=== PATIENT | male | born 1940 | race Caucasian/White ===

== ENCOUNTER 2016-04-19 12:20 | Inpatient (IN) | payer OTHER, MEDICARE ==
[~2016-04-19] VITALS: Ht 175.3 cm; Wt 102.0 kg
[~2016-04-19 12:20] MED LIST: ASPIRIN EC325 MG PO; ASPIRIN325 MG PO; ATARAX,VISTARIL25 M1 PO; Bactrim,Septra DS 80 PO; CALCIUM ACETAT667 MG PO; Coumadin Daily Dose PO; DOCUSATE SODIU100 MG PO; ENDOCET 5-3251 EACH PO; FENOFIBRATE54 M1 PO; Feosol PO; Flomax PO; LASIX40 MG PO; LOPRESSOR50 MG PO; NABI650T PO; OMEPRAZOLE40 M1 PO; PRAVACHOL40 MG PO; PriLOSEC PO; TOPROL XL25 MG PO
[2016-04-19 13:46] LABS: MCH 31.7 PG (29.0-34.0); MCHC 34.2 G/DL (30.0-36.0); MCV 92.4 FL (86-99); MEAN PLAT.VOLUME 9.4 uM^3 (9.0-12.4); PLATELET COUNT 130 K/uL (156-360); RBC DIS.WIDTH-CV 12.9 % (11.8-14.6); RBC DIS.WIDTH-SD 42.2 % (39-53); RED BLOOD COUNT 3.57 M/uL (4.00-5.50); WHITE BLOOD COUNT 6.8 K/uL (4.1-10.2)
[2016-04-19 13:57] LABS: CHLORIDE 103 mEq/L (99-109); POTASSIUM 3.6 mEq/L (3.7-5.4); SODIUM 139 mEq/L (136-147)
[2016-04-19 13:59] LABS: GLUCOSE 121 mg/dL (70-99)
[2016-04-19 14:00] LABS: ANION GAP 10 MEQ/L (2-14)
[2016-04-19 14:03] LABS: GFR ESTIMATE (CALCULATED) > 59 mL/min/; UREA NITROGEN (BUN) 12 mg/dL (9-23)
[2016-04-19 14:14] LABS: TROP-I INTERPRETATION NEGATIVE; TROPONIN-I 0.03 ng/mL (0.0-0.30)
[2016-04-19] MEDS ORDERED: ASPIR 8181 M1 PO (15:07)
[2016-04-19] MEDS ORDERED: METOPROLOL TART25 MG PO (15:07)
[2016-04-19] MEDS ORDERED: DEXAMETHASONE4 MG PO (15:08)
[2016-04-19] MEDS ORDERED: LASIX40 MG PO (15:08)
[2016-04-19] MEDS ORDERED: ACYCLOVIR400 MG PO (15:09)
[2016-04-19] MEDS ORDERED: BACTRIM,SEPT1 TABLET PO (15:19)
[2016-04-19 18:44] LABS: TROP-I INTERPRETATION INDETERMINATE; TROPONIN-I 0.39 ng/mL (0.0-0.30)
[2016-04-19 20:13] VITALS: BP 132/92
[2016-04-20 00:42] LABS: TROP-I INTERPRETATION POSITIVE
[2016-04-20 11:30] LABS: TROP-I INTERPRETATION POSITIVE
[2016-04-20 12:16] VITALS: BP 123/73
[2016-04-20 15:20] LABS: TROP-I INTERPRETATION POSITIVE
[2016-04-20 15:21] LABS: TROPONIN-I 5.35 ng/mL (0.0-0.30)
[2016-04-20 17:07] VITALS: BP 142/97
[2016-04-20 19:28] LABS: TROP-I INTERPRETATION POSITIVE
[2016-04-20 19:29] LABS: TROPONIN-I 5.52 ng/mL (0.0-0.30)
[2016-04-20 19:30] VITALS: BP 125/84
[2016-04-20 23:15] VITALS: BP 113/77
[2016-04-21 03:10] VITALS: BP 110/70
[2016-04-21 06:04] LABS: EOSINOPHIL (%) 0.9 % (0-5); HEMATOCRIT 32.4 % (38.0-50.0); IMMATURE GRANULOCYTE (%) 3.9 % (0.0-0.7); IMMATURE GRANULOCYTE COUNT 0.2 K/uL; LYMPHOCYTE COUNT 0.6 K/uL (1.0-2.8); MCH 31.5 PG (29.0-34.0); MCV 95.3 FL (86-99); MEAN PLAT.VOLUME 9.9 uM^3 (9.0-12.4); MONOCYTE (%) 16.3 % (3-12); MONOCYTE COUNT 0.8 K/uL (0-0.8); NEUTROPHIL COUNT 3.1 K/uL (1.8-6.4); PLATELET COUNT 135 K/uL (156-360); RBC DIS.WIDTH-CV 13.7 % (11.8-14.6); RBC DIS.WIDTH-SD 47.6 % (39-53); WHITE BLOOD COUNT 4.7 K/uL (4.1-10.2)
[2016-04-21 06:10] LABS: ANION GAP 7 MEQ/L (2-14); CHLORIDE 105 MEQ/L (99-109); GFR ESTIMATE (CALCULATED) > 59 mL/min/; POTASSIUM 4.2 MEQ/L (3.7-5.4); SAMPLE HEMOLYSIS CHECK 0; SAMPLE ICTERIC CHECK 0; SAMPLE LIPEMIA CHECK 0; SODIUM 141 MEQ/L (136-147); UREA NITROGEN (BUN) 12 mg/dL (9-23)
[2016-04-21 06:13] LABS: GLUCOSE 83 mg/dL (70-99)
[2016-04-21 06:58] LABS: HEMATOLOGY COMMENT 1 SMEAR COMPATIBLE; USER ID CCL
[2016-04-21 07:47] VITALS: BP 138/84
[2016-04-21 12:00] VITALS: BP 133/79
[2016-04-21 14:00] LABS: TROP-I INTERPRETATION POSITIVE
[2016-04-21 14:26] LABS: TROPONIN-I 4.02 ng/mL (0.0-0.30)
[2016-04-21 17:58] VITALS: BP 141/95
[2016-04-21 20:35] VITALS: BP 128/88
[2016-04-22] VITALS (7 sets, daily range): BP systolic 126–145; BP diastolic 71–82
[2016-04-22 06:36] LABS: HEMATOCRIT 33.4 % (38.0-50.0); MCH 32.2 PG (29.0-34.0); MCHC 33.8 G/DL (30.0-36.0); MCV 95.2 FL (86-99); MEAN PLAT.VOLUME 9.7 uM^3 (9.0-12.4); PLATELET COUNT 132 K/uL (156-360); RBC DIS.WIDTH-CV 13.6 % (11.8-14.6); RBC DIS.WIDTH-SD 47.2 % (39-53); RED BLOOD COUNT 3.51 M/uL (4.00-5.50); WHITE BLOOD COUNT 5.2 K/uL (4.1-10.2)
[2016-04-22 06:49] LABS: INTER. NORMALIZED RATIO 1.1; PROTHROMBIN TIME 10.7 (9.2-11.2); PTT 32.3 (25-32)
[2016-04-22 06:58] LABS: ANION GAP 8 MEQ/L (2-14); CHLORIDE 106 MEQ/L (99-109); GFR ESTIMATE (CALCULATED) > 59 mL/min/; GLUCOSE 88 mg/dL (70-99); SAMPLE HEMOLYSIS CHECK 0; SAMPLE ICTERIC CHECK 0; SAMPLE LIPEMIA CHECK 0; SODIUM 141 MEQ/L (136-147); UREA NITROGEN (BUN) 12 mg/dL (9-23)
[2016-04-23 03:50] VITALS: BP 127/72
[2016-04-23] MEDS ORDERED: CLOPIDOGREL75 MG PO (07:34)
[2016-04-23 08:37] VITALS: BP 117/81
== END 2016-04-23 09:38 | disposition home or self-care (01) | DRG 281 ==
LOC: EME 12:20 → EDOF 15:31 → 5WEST 19:31 → 4EAST 04-20 12:50 → 5WEST 04-20 12:50 → 4EAST 04-20 16:02
PROVIDERS: Emergency Medicine; Hospitalist; Internal Medicine; Internal Medicine Cardiovascular Disease; Physician Assistant
PROC: 4A023N7 Measurement of Cardiac Sampling and Pressure, Left Heart, Percutaneous Approach (ICD-10-PCS; principal; 2016-04-22)
PROC: B41F1ZZ Fluoroscopy of Right Lower Extremity Arteries using Low Osmolar Contrast (ICD-10-PCS; principal; 2016-04-22)
PROC: B2111ZZ Fluoroscopy of Multiple Coronary Arteries using Low Osmolar Contrast (ICD-10-PCS; principal; 2016-04-22)
DX: I21.4 Non-ST elevation (NSTEMI) myocardial infarction (principal); I25.10 Atherosclerotic heart disease of native coronary artery without angina pectoris; I13.0 Hypertensive heart and chronic kidney disease with heart failure and stage 1 through stage 4 chronic kidney disease, or unspecified chronic kidney disease; I50.32 Chronic diastolic (congestive) heart failure; C90.00 Multiple myeloma not having achieved remission; I71.2 Thoracic aortic aneurysm, without rupture; N18.9 Chronic kidney disease, unspecified; I35.0 Nonrheumatic aortic (valve) stenosis; I27.2 Other secondary pulmonary hypertension; E78.5 Hyperlipidemia, unspecified; K21.9 Gastro-esophageal reflux disease without esophagitis; D47.2 Monoclonal gammopathy; E66.9 Obesity, unspecified; Z96.651 Presence of right artificial knee joint; Z87.891 Personal history of nicotine dependence; Z79.82 Long term (current) use of aspirin; Z68.33 Body mass index [BMI] 33.0-33.9, adult
CPT/HCPCS: 71010; 71275; 80048; 84484; 85025; 85027; 85610; 85730; 93005; 93306; 99281; 99285; C1750; C1760; C1769; C1887; C1894; G0378; J1644; J1650; J2250; J3010; J7040; J7050

== ENCOUNTER → 2016-05-21 | Outpatient (CLI) | payer OTHER, MEDICARE ==
[~2016-05-21] MED LIST changes: +ACYCLOVIR400 MG PO; +ASPIR 8181 M1 PO; +BACTRIM,SEPT1 TABLET PO; +CALCIUM ACETAT667 M2 PO; +CLOPIDOGREL75 MG PO; +COMPAZINE10 MG PO; +DEXAMETHASONE4 MG PO; +ERGOCALCIF50000 UNIT PO; +KLOR-CON SPRIN10 MEQ PO; +METOPROLOL TART25 MG PO
[2016-05-21 10:14] LABS: EOSINOPHIL (%) 0 % (0-5); IMMATURE GRANULOCYTE (%) 0.5 % (0.0-0.7); IMMATURE GRANULOCYTE COUNT 0.1 K/uL; LYMPHOCYTE COUNT 0.4 K/uL (1.0-2.8); MCH 32.2 PG (29.0-34.0); MCHC 34.6 G/DL (30.0-36.0); MCV 93.1 FL (86-99); MEAN PLAT.VOLUME 8.7 uM^3 (9.0-12.4); MONOCYTE (%) 2.5 % (3-12); MONOCYTE COUNT 0.3 K/uL (0-0.8); NEUTROPHIL (%) 93.7 % (45-76); NEUTROPHIL COUNT 10.2 K/uL (1.8-6.4); PLATELET COUNT 191 K/uL (156-360); RBC DIS.WIDTH-CV 13.7 % (11.8-14.6); RBC DIS.WIDTH-SD 46.6 % (39-53); RED BLOOD COUNT 3.76 M/uL (4.00-5.50)
[2016-05-21 10:18] LABS: WHITE BLOOD COUNT 10.9 K/uL (4.1-10.2)
[2016-05-21 10:21] LABS: PROTHROMBIN TIME 10.4 (9.2-11.2); PTT 23.6 (25-32)
[2016-05-21 11:00] LABS: ABS NEUTROPHIL COUNT 10.31; MACROCYTES OCC; PLAT.SUFFICIENCY ADEQUATE
[2016-05-23 15:11] LABS: Flow Number of Markers 24 (()); Flow Spec Viability 94 % (()); Flow Specimen Type BONE MARROW (())
== END | disposition home or self-care (01) ==
LOC: OPR 09:09 → EDSTATUS 10:00 → OPR 10:00
PROVIDERS: Anesthesiology; Internal Medicine Hematology & Oncology
PROC: 07DS3ZX Extraction of Vertebral Bone Marrow, Percutaneous Approach, Diagnostic (ICD-10-PCS; principal; 2016-05-21)
DX: C90.00 Multiple myeloma not having achieved remission (principal); I71.2 Thoracic aortic aneurysm, without rupture; I35.0 Nonrheumatic aortic (valve) stenosis; K86.2 Cyst of pancreas; N40.0 Benign prostatic hyperplasia without lower urinary tract symptoms; K21.9 Gastro-esophageal reflux disease without esophagitis
CPT/HCPCS: 77012; 85025; 85610; 85730; 85999; 88184 90; 88185 90; 88189 90; 88237 90; 88264 90; 88271 90; 88271 91; 88275 90; 88275 91; 88280 90; 88291 90; J3010

== ENCOUNTER → 2016-06-03 | Outpatient (CLI) | payer OTHER, MEDICARE | END | disposition home or self-care (01) | LOC: NUC 07:30 | DX: M25.551 Pain in right hip (principal); M25.552 Pain in left hip; C90.00 Multiple myeloma not having achieved remission | CPT/HCPCS: 78306; A9503 ==

== ENCOUNTER 2016-11-05 07:39 | Inpatient (IN) | payer OTHER, MEDICARE ==
[~2016-11-05] VITALS: Ht 172.7 cm; Wt 94.3 kg
[2016-11-05] VITALS (9 sets, daily range): BP systolic 83–143; BP diastolic 56–99
[~2016-11-05 07:39] MED LIST changes: +ATORVASTATIN CA40 MG PO; +KLOR-CON M2020 MEQ PO; -KLOR-CON SPRIN10 MEQ PO; +METOPROLOL SUCC25 MG PO; -METOPROLOL TART25 MG PO
[2016-11-05 08:21] LABS: HEMATOCRIT 38.3 % (38.0-50.0); MCH 30.6 PG (29.0-34.0); MCHC 33.7 G/DL (30.0-36.0); MEAN PLAT.VOLUME 9.7 uM^3 (9.0-12.4); RBC DIS.WIDTH-CV 12.9 % (11.8-14.6); RBC DIS.WIDTH-SD 42.5 % (39-53); RED BLOOD COUNT 4.21 M/uL (4.00-5.50); WHITE BLOOD COUNT 8.8 K/uL (4.1-10.2)
[2016-11-05 08:23] LABS: PLATELET COUNT 148 K/uL (156-360)
[2016-11-05 08:53] LABS: ANION GAP 9 MEQ/L (2-14); CHLORIDE 108 MEQ/L (99-109); SAMPLE HEMOLYSIS CHECK 0; SAMPLE ICTERIC CHECK 0; SAMPLE LIPEMIA CHECK 0; SODIUM 142 MEQ/L (136-147)
[2016-11-05 08:59] LABS: GFR ESTIMATE (CALCULATED) > 59 mL/min/; GLUCOSE 106 mg/dL (70-99); UREA NITROGEN (BUN) 16 mg/dL (9-23)
[2016-11-05 09:15] LABS: TROP-I INTERPRETATION NEGATIVE; TROPONIN-I 0.01 ng/mL (0.0-0.30)
[2016-11-05 12:00] LABS: TROP-I INTERPRETATION NEGATIVE; TROPONIN-I < 0.01 ng/mL (0.0-0.30)
[2016-11-05] MEDS ORDERED: PLAVIX75 MG PO (13:54)
[2016-11-05] MEDS ORDERED: VITAMIN D2000 UNIT PO (13:57)
[2016-11-05] MEDS ORDERED: VELCADE3.5 MG IV (14:00)
[2016-11-05 16:34] LABS: INFLUENZA A VIRAL ANTIGEN NEGATIVE; INFLUENZA B VIRAL ANTIGEN NEGATIVE
[2016-11-05 18:22] LABS: TROP-I INTERPRETATION NEGATIVE; TROPONIN-I 0.02 ng/mL (0.0-0.30)
[2016-11-06] VITALS (7 sets, daily range): BP systolic 104–126; BP diastolic 58–78
[2016-11-06 00:59] LABS: TROP-I INTERPRETATION NEGATIVE; TROPONIN-I < 0.01 ng/mL (0.0-0.30)
[2016-11-06 06:27] LABS: MCH 32.3 PG (29.0-34.0); MCHC 34.6 G/DL (30.0-36.0); MCV 93.3 FL (86-99); MEAN PLAT.VOLUME 9.6 uM^3 (9.0-12.4); PLATELET COUNT 138 K/uL (156-360); RBC DIS.WIDTH-CV 13.2 % (11.8-14.6); RBC DIS.WIDTH-SD 45.3 % (39-53); RED BLOOD COUNT 3.75 M/uL (4.00-5.50); WHITE BLOOD COUNT 6.5 K/uL (4.1-10.2)
[2016-11-06 06:59] LABS: ANION GAP 8 MEQ/L (2-14); CHLORIDE 105 MEQ/L (99-109); GFR ESTIMATE (CALCULATED) > 59 mL/min/; GLUCOSE 92 mg/dL (70-99); POTASSIUM 3.7 MEQ/L (3.7-5.4); SAMPLE HEMOLYSIS CHECK 0; SAMPLE ICTERIC CHECK 0; SAMPLE LIPEMIA CHECK 0; SODIUM 141 MEQ/L (136-147); UREA NITROGEN (BUN) 15 mg/dL (9-23)
[2016-11-06 09:29] LABS: INTERNAL CONTROL VALID? YES
[2016-11-07 05:50] VITALS: BP 99/64
[2016-11-07 07:40] VITALS: BP 122/78
[2016-11-07] MEDS ORDERED: PROAIR HFA8.5 GM IH (09:58)
[2016-11-07] MEDS ORDERED: SPIRIVA1 INHALATI IH (09:58)
[2016-11-07] MEDS ORDERED: SORE THROAT LO1 EAC3 MM (09:58)
[2016-11-07] MEDS ORDERED: ADVAIR HFA120 INHALA IH (09:58)
[2016-11-07] MEDS ORDERED: AZITHROMYCIN250 MG1 PO (09:59)
== END 2016-11-07 11:45 | disposition home or self-care (01) | DRG 190 ==
LOC: EME 07:39 → EDOF 12:53 → 5EAST 12:53 → ENRESERV 12:58 → 5EAST 14:25
PROVIDERS: Emergency Medicine; Nurse Practitioner Adult Health
DX: J44.1 Chronic obstructive pulmonary disease with (acute) exacerbation (principal); J96.01 Acute respiratory failure with hypoxia; I50.32 Chronic diastolic (congestive) heart failure; I13.0 Hypertensive heart and chronic kidney disease with heart failure and stage 1 through stage 4 chronic kidney disease, or unspecified chronic kidney disease; C90.00 Multiple myeloma not having achieved remission; J98.11 Atelectasis; J20.9 Acute bronchitis, unspecified; Z96.651 Presence of right artificial knee joint; I25.10 Atherosclerotic heart disease of native coronary artery without angina pectoris; I25.2 Old myocardial infarction; K21.9 Gastro-esophageal reflux disease without esophagitis; N18.9 Chronic kidney disease, unspecified; F17.290 Nicotine dependence, other tobacco product, uncomplicated; E78.5 Hyperlipidemia, unspecified; I71.2 Thoracic aortic aneurysm, without rupture; Z88.1 Allergy status to other antibiotic agents; Z79.82 Long term (current) use of aspirin
CPT/HCPCS: 71020; 71275; 80048; 83605; 83880; 84484; 85027; 87040; 87070; 87205; 87449; 87502; 93005; 94640; 94640 76; 94799; 99202; 99281; 99284; J0456; J1644; J7030

== ENCOUNTER 2017-07-30 11:05 | Inpatient (IN) | payer OTHER, MEDICARE ==
[~2017-07-30] VITALS: Ht 167.6 cm; Wt 77.2 kg
[~2017-07-30 11:05] MED LIST changes: +ADVAIR HFA120 INHALA IH; +AZITHROMYCIN250 MG1 PO; +PLAVIX75 MG PO; +PROAIR HFA8.5 GM IH; +SORE THROAT LO1 EAC3 MM; +SPIRIVA1 INHALATI IH; +VELCADE3.5 MG IV; +VITAMIN D2000 UNIT PO
[2017-07-30 13:11] LABS: HEMATOCRIT 31.1 % (38.0-50.0); HEMOGLOBIN 10.7 G/DL (12.5-16.6); MCH 31.9 PG (29.0-34.0); MCHC 34.4 G/DL (30.0-36.0); MCV 92.8 FL (86-99); PLATELET COUNT 101 K/uL (156-360); RBC DIS.WIDTH-CV 15.8 % (11.8-14.6); RBC DIS.WIDTH-SD 53.8 % (39-53); RED BLOOD COUNT 3.35 M/uL (4.00-5.50); WHITE BLOOD COUNT 5.9 K/uL (4.1-10.2)
[2017-07-30 13:19] LABS: ALBUMIN 3.8 g/dL (3.2-4.8); CHLORIDE 105 mEq/L (99-109); POTASSIUM 5.6 mEq/L (3.7-5.4); SODIUM 134 mEq/L (136-147)
[2017-07-30 13:22] LABS: TOTAL PROTEIN 6.1 g/dL (6.4-8.3)
[2017-07-30 13:23] LABS: GLUCOSE 195 mg/dL (70-99)
[2017-07-30 13:24] LABS: TOTAL BILIRUBIN 0.5 mg/dL (0.0-1.0)
[2017-07-30 13:25] LABS: ALKALINE PHOSPHATASE 84 IU/L (3-129); CREATININE 3.3 mg/dL (0.6-1.3); GFR ESTIMATE (CALCULATED) 19 mL/min/ (58.99-99999)
[2017-07-30 13:26] LABS: UREA NITROGEN (BUN) 30 mg/dL (9-23)
[2017-07-30 13:27] LABS: AST (GOT) 20 IU/L (2-34)
[2017-07-30 13:28] LABS: ALT (GPT) 14 IU/L (3-49)
[2017-07-30 14:41] LABS: APPEARANCE CLEAR ((CLEAR)); BILIRUBIN NEGATIVE; BLOOD SMALL; COLOR STRAW ((YELLOW)); GLUCOSE (STRIP) NEGATIVE; KETONES NEGATIVE; LEUKOCYTES NEGATIVE; NITRITE NEGATIVE; PROTEIN (STRIP) NEGATIVE; SPECIFIC GRAVITY 1.009 (1.000-1.030); UROBILINOGEN 0.2 MG/DL (0.2-1.0)
[2017-07-30 14:55] LABS: BACTERIA RARE /HPF; EPITHELIAL CELLS RARE /HPF; HYALINE CASTS 0-5 /LPF; MUCUS TRACE /LPF; RED BLOOD CELLS NONE SEEN /HPF (0-5); WHITE BLOOD CELLS 0-5 /HPF (0-5)
[2017-07-30] MEDS ORDERED: LISINOPRIL2.5 MG PO (15:14)
[2017-07-30] MEDS ORDERED: CALCIUM600 M1 PO (15:15)
[2017-07-30] MEDS ORDERED: ACETAMINOPHEN325 M1 PO (15:16)
[2017-07-30] MEDS ORDERED: XGEVA120 MG/1.7 SC (15:16)
[2017-07-30 17:14] VITALS: BP 119/59
[2017-07-30 18:09] LABS: CHLORIDE 108 MEQ/L (99-109); CREATININE 2.9 MG/DL (0.6-1.3); GFR ESTIMATE (CALCULATED) 23 mL/min/ (58.99-99999); GLUCOSE 154 mg/dL (70-99); POTASSIUM 5.2 MEQ/L (3.7-5.4); SODIUM 137 MEQ/L (136-147); UREA NITROGEN (BUN) 30 mg/dL (9-23)
[2017-07-30 20:39] VITALS: BP 99/42
[2017-07-31 00:16] VITALS: BP 98/41
[2017-07-31 04:28] VITALS: BP 100/42
[2017-07-31 06:30] LABS: CHLORIDE 113 MEQ/L (99-109); GFR ESTIMATE (CALCULATED) 22 mL/min/ (58.99-99999); POTASSIUM 5.4 MEQ/L (3.7-5.4); SODIUM 138 MEQ/L (136-147); UREA NITROGEN (BUN) 38 mg/dL (9-23)
[2017-07-31 06:32] LABS: GLUCOSE 109 mg/dL (70-99)
[2017-07-31 08:00] VITALS: BP 98/52
[2017-07-31 11:36] VITALS: BP 96/48
[2017-07-31 16:43] LABS: CHLORIDE 112 MEQ/L (99-109); CREATININE 2.7 MG/DL (0.6-1.3); GFR ESTIMATE (CALCULATED) 24 mL/min/ (58.99-99999); GLUCOSE 119 mg/dL (70-99); SODIUM 138 MEQ/L (136-147); UREA NITROGEN (BUN) 36 mg/dL (9-23)
[2017-07-31 19:30] VITALS: BP 98/46
[2017-07-31 19:35] LABS: UR CREATININE CONCENTRATION 23.3 MG/DL
[2017-07-31 23:27] VITALS: BP 102/84
[2017-08-01 03:29] VITALS: BP 96/53
[2017-08-01 05:40] LABS: ALBUMIN 2.8 G/DL (3.2-4.8); CHLORIDE 115 MEQ/L (99-109); CREATININE 2.7 MG/DL (0.6-1.3); GFR ESTIMATE (CALCULATED) 24 mL/min/ (58.99-99999); PHOSPHORUS 3.1 mg/dL (2.5-4.9); POTASSIUM 4.8 MEQ/L (3.7-5.4); SODIUM 140 MEQ/L (136-147); UREA NITROGEN (BUN) 30 mg/dL (9-23)
[2017-08-01 05:44] LABS: GLUCOSE 87 mg/dL (70-99)
[2017-08-01 07:52] VITALS: BP 101/53
[2017-08-01 11:21] VITALS: BP 97/51
[2017-08-01 15:44] VITALS: BP 108/54
[2017-08-01 19:19] VITALS: BP 101/54
[2017-08-01 23:43] VITALS: BP 101/51; BP 11/51
[2017-08-02 04:00] VITALS: BP 111/53
[2017-08-02 06:18] LABS: ALBUMIN 2.9 G/DL (3.2-4.8); CHLORIDE 115 MEQ/L (99-109); GFR ESTIMATE (CALCULATED) 31 mL/min/ (58.99-99999); GLUCOSE 83 mg/dL (70-99); PHOSPHORUS 2.9 mg/dL (2.5-4.9); SODIUM 140 MEQ/L (136-147); UREA NITROGEN (BUN) 21 mg/dL (9-23)
[2017-08-02 06:24] LABS: CREATININE 2.2 MG/DL (0.6-1.3)
[2017-08-02 07:50] VITALS: BP 110/53
[2017-08-02 12:01] VITALS: BP 111/56
[2017-08-02 15:48] VITALS: BP 118/55
[2017-08-02 19:52] VITALS: BP 116/56
[2017-08-03 00:20] VITALS: BP 112/54
[2017-08-03 07:14] LABS: ALBUMIN 2.7 G/DL (3.2-4.8); CHLORIDE 115 MEQ/L (99-109); GFR ESTIMATE (CALCULATED) 35 mL/min/ (58.99-99999); GLUCOSE 80 mg/dL (70-99); PHOSPHORUS 2.8 mg/dL (2.5-4.9); POTASSIUM 5.1 MEQ/L (3.7-5.4); SODIUM 140 MEQ/L (136-147); UREA NITROGEN (BUN) 17 mg/dL (9-23)
[2017-08-03 08:14] VITALS: BP 120/60
[2017-08-03 16:59] VITALS: BP 103/55
[2017-08-03 23:58] VITALS: BP 95/53
[2017-08-04 06:29] LABS: ALBUMIN 2.8 G/DL (3.2-4.8); CHLORIDE 111 MEQ/L (99-109); CHLORIDE 112 MEQ/L (99-109); CREATININE 2.1 MG/DL (0.6-1.3); GFR ESTIMATE (CALCULATED) 33 mL/min/ (58.99-99999); GLUCOSE 81 mg/dL (70-99); PHOSPHORUS 3.1 mg/dL (2.5-4.9); POTASSIUM 4.7 MEQ/L (3.7-5.4); POTASSIUM 4.8 MEQ/L (3.7-5.4); SODIUM 139 MEQ/L (136-147); SODIUM 140 MEQ/L (136-147); UREA NITROGEN (BUN) 17 mg/dL (9-23)
[2017-08-04 08:06] VITALS: BP 113/57
[2017-08-04 16:36] VITALS: BP 114/59
[2017-08-05 00:23] VITALS: BP 105/55
[2017-08-05 07:05] LABS: ALBUMIN 2.9 G/DL (3.2-4.8); CHLORIDE 110 MEQ/L (99-109); CREATININE 2.4 MG/DL (0.6-1.3); GFR ESTIMATE (CALCULATED) 28 mL/min/ (58.99-99999); GLUCOSE 82 mg/dL (70-99); PHOSPHORUS 4.1 mg/dL (2.5-4.9); POTASSIUM 4.6 MEQ/L (3.7-5.4); SODIUM 142 MEQ/L (136-147); UREA NITROGEN (BUN) 19 mg/dL (9-23)
[2017-08-05 07:44] VITALS: BP 116/58
[2017-08-05] MEDS ORDERED: TAMSULOSIN HCL0.4 MG PO (08:54)
== END 2017-08-05 12:01 | disposition home or self-care (01) | DRG 291 ==
LOC: EME 11:05 → 5SOUTH 14:12 → EDOF 14:12 → ENRESERV 14:13 → 5SOUTH 17:02 → ENPENDDIS 08-05 09:57 → 5SOUTH 08-05 12:01
PROVIDERS: Emergency Medicine; Hospitalist; Internal Medicine Nephrology
DX: I13.0 Hypertensive heart and chronic kidney disease with heart failure and stage 1 through stage 4 chronic kidney disease, or unspecified chronic kidney disease (principal); I50.33 Acute on chronic diastolic (congestive) heart failure; N18.9 Chronic kidney disease, unspecified; N17.0 Acute kidney failure with tubular necrosis; E87.5 Hyperkalemia; E86.9 Volume depletion, unspecified; E83.51 Hypocalcemia; C90.00 Multiple myeloma not having achieved remission; N13.8 Other obstructive and reflux uropathy; N31.2 Flaccid neuropathic bladder, not elsewhere classified; R31.9 Hematuria, unspecified; T50.1X5A Adverse effect of loop [high-ceiling] diuretics, initial encounter; T46.4X5A Adverse effect of angiotensin-converting-enzyme inhibitors, initial encounter; E78.5 Hyperlipidemia, unspecified; I25.10 Atherosclerotic heart disease of native coronary artery without angina pectoris; I42.9 Cardiomyopathy, unspecified; N40.1 Benign prostatic hyperplasia with lower urinary tract symptoms; R33.8 Other retention of urine; K21.9 Gastro-esophageal reflux disease without esophagitis; Z96.653 Presence of artificial knee joint, bilateral; Z95.2 Presence of prosthetic heart valve; Z79.02 Long term (current) use of antithrombotics/antiplatelets; Z79.82 Long term (current) use of aspirin; Z87.891 Personal history of nicotine dependence
CPT/HCPCS: 36415; 76770; 80048 91; 80053; 80069; 81003; 82232; 82570; 82728; 82784; 83540; 83605; 83615; 83883 90; 84156; 84165; 84300; 84466; 84550; 85007; 85027; 86334; 86335; 87040; 87086; 93005; 99281; 99285; J1644; J1940; J7030; J7040

== ENCOUNTER 2017-08-20 23:03 | Observation (INO) | payer OTHER, MEDICARE ==
[~2017-08-20] VITALS: Ht 167.6 cm; Wt 81.0 kg
[~2017-08-20 23:03] MED LIST changes: +ACETAMINOPHEN325 M1 PO; +CALCIUM600 M1 PO; +LISINOPRIL2.5 MG PO; +TAMSULOSIN HCL0.4 MG PO; +XGEVA120 MG/1.7 SC
[2017-08-21] VITALS (19 sets, daily range): BP systolic 73–111; BP diastolic 42–56
[2017-08-21 00:20] LABS: HEMATOCRIT 21.7 % (38.0-50.0); HEMOGLOBIN 7.6 G/DL (12.5-16.6); MCH 32.8 PG (29.0-34.0); MCV 93.5 FL (86-99); RBC DIS.WIDTH-CV 17.9 % (11.8-14.6); RBC DIS.WIDTH-SD 61.1 % (39-53); WHITE BLOOD COUNT 6.7 K/uL (4.1-10.2)
[2017-08-21 00:32] LABS: CHLORIDE 106 mEq/L (99-109); POTASSIUM 4.3 mEq/L (3.7-5.4); SODIUM 138 mEq/L (136-147)
[2017-08-21 00:33] LABS: GLUCOSE 149 mg/dL (70-99)
[2017-08-21 00:37] LABS: CREATININE 1.4 mg/dL (0.6-1.3); GFR ESTIMATE (CALCULATED) 52 mL/min/ (58.99-99999)
[2017-08-21 00:38] LABS: UREA NITROGEN (BUN) 21 mg/dL (9-23)
[2017-08-21 00:44] LABS: TROP-I INTERPRETATION NEGATIVE; TROPONIN-I < 0.01 ng/mL (0.0-0.30)
[2017-08-21 04:53] LABS: ALBUMIN 3.3 g/dL (3.2-4.8)
[2017-08-21 04:56] LABS: TOTAL PROTEIN 4.8 g/dL (6.4-8.3)
[2017-08-21 04:58] LABS: TOTAL BILIRUBIN 0.6 mg/dL (0.0-1.0)
[2017-08-21 04:59] LABS: ALKALINE PHOSPHATASE 97 IU/L (3-129)
[2017-08-21 05:01] LABS: AST (GOT) 28 IU/L (2-34); DIRECT BILIRUBIN 0.3 mg/dL (0.0-0.3)
[2017-08-21 05:02] LABS: ALT (GPT) 27 IU/L (3-49); LIPASE 13 U/L (1.0-51.0)
[2017-08-21 07:10] LABS: HEMATOCRIT 21.6 % (38.0-50.0); HEMOGLOBIN 7.3 G/DL (12.5-16.6); MCH 32.2 PG (29.0-34.0); MCHC 33.8 G/DL (30.0-36.0); MCV 95.2 FL (86-99); PLATELET COUNT 71 K/uL (156-360); RBC DIS.WIDTH-CV 18.3 % (11.8-14.6); RBC DIS.WIDTH-SD 63.5 % (39-53); WHITE BLOOD COUNT 6.3 K/uL (4.1-10.2)
[2017-08-21 07:29] LABS: TROP-I INTERPRETATION NEGATIVE; TROPONIN-I < 0.01 ng/mL (0.0-0.30)
[2017-08-21 07:36] LABS: RED BLOOD COUNT 2.27 M/uL (4.00-5.50)
[2017-08-21 07:58] LABS: CHLORIDE 110 MEQ/L (99-109); CREATININE 1.3 MG/DL (0.6-1.3); GFR ESTIMATE (CALCULATED) 57 mL/min/ (58.99-99999); SODIUM 142 MEQ/L (136-147); UREA NITROGEN (BUN) 20 mg/dL (9-23)
[2017-08-21 07:59] LABS: GLUCOSE 98 mg/dL (70-99)
[2017-08-21 11:39] LABS: RED BLOOD COUNT 2.32 M/uL (4.00-5.50)
[2017-08-21 11:40] LABS: PLATELET COUNT 84 K/uL (156-360)
[2017-08-21 12:17] LABS: TROP-I INTERPRETATION NEGATIVE; TROPONIN-I < 0.01 ng/mL (0.0-0.30)
[2017-08-21] MEDS ORDERED: LASIX20 MG PO (13:50)
[2017-08-21] MEDS ORDERED: REVLIMID10 MG PO (13:50)
[2017-08-21] MEDS ORDERED: VELCADE3.5 MG SC (13:54)
[2017-08-21] MEDS ORDERED: DECADRON4 M1 PO (13:56)
[2017-08-21 16:11] LABS: HEMATOCRIT 25.4 % (38.0-50.0); HEMOGLOBIN 8.8 G/DL (12.5-16.6); MCHC 34.6 G/DL (30.0-36.0); MCV 92.4 FL (86-99); PLATELET COUNT 70 K/uL (156-360); RBC DIS.WIDTH-CV 19.3 % (11.8-14.6); RBC DIS.WIDTH-SD 63.4 % (39-53)
[2017-08-21 16:49] LABS: ABS NEUTROPHIL COUNT 5.1; ANISOCYTOSIS 1+; ATYPICAL LYMPHOCYTE 2.7 %; BAND NEUTROPHILS 21.2 % (0-8.0); EOSINOPHIL ABS CT 0.1; EOSINOPHILS 0.9 % (0-5.0); LYMPHOCYTES 3.5 % (15.0-45.0); MONOCYTES 6.2 % (0-9.0); MYELOCYTES 0.9 %; OVALOCYTES 1+; PLAT.SUFFICIENCY DECREASED; POIKILOCYTOSIS 1+; RED BLOOD COUNT 2.75 M/uL (4.00-5.50); SEG.NEUTROPHILS 64.6 % (46.0-76.0)
[2017-08-21 19:19] LABS: HEMATOCRIT 26.1 % (38.0-50.0); HEMOGLOBIN 8.8 G/DL (12.5-16.6); MCV 92.2 FL (86-99)
[2017-08-22 00:35] LABS: HEMATOCRIT 27.1 % (38.0-50.0); HEMOGLOBIN 9.4 G/DL (12.5-16.6); MCV 91.2 FL (86-99)
[2017-08-22 03:19] VITALS: BP 116/56
[2017-08-22 07:21] LABS: APPEARANCE CLEAR ((CLEAR)); BILIRUBIN NEGATIVE; BLOOD SMALL; COLOR STRAW ((YELLOW)); GLUCOSE (STRIP) NEGATIVE; KETONES NEGATIVE; LEUKOCYTES NEGATIVE; NITRITE NEGATIVE; PROTEIN (STRIP) NEGATIVE; SPECIFIC GRAVITY 1.009 (1.000-1.030); UROBILINOGEN 0.2 MG/DL (0.2-1.0)
[2017-08-22 07:25] VITALS: BP 105/53
[2017-08-22 07:46] LABS: BACTERIA NONE SEEN /HPF; EPITHELIAL CELLS NONE SEEN /HPF; MUCUS NONE SEEN /LPF; RED BLOOD CELLS 0-5 /HPF (0-5); WHITE BLOOD CELLS 0-5 /HPF (0-5)
== END 2017-08-22 11:10 | disposition home or self-care (01) ==
LOC: EME 23:03 → EDOF 08-21 03:05 → 4SOUTH 08-21 03:05 → EDOF 08-21 03:05 → ENRESERV 08-21 03:09 → 4SOUTH 08-21 05:09
PROVIDERS: Anesthesiology; Emergency Medicine; Hospitalist; Internal Medicine
PROC: 30233N1 Transfusion of Nonautologous Red Blood Cells into Peripheral Vein, Percutaneous Approach (ICD-10-PCS; principal; 2017-08-21)
DX: D61.818 Other pancytopenia (principal); C90.00 Multiple myeloma not having achieved remission; Z92.21 Personal history of antineoplastic chemotherapy; R07.9 Chest pain, unspecified; I25.10 Atherosclerotic heart disease of native coronary artery without angina pectoris; I35.0 Nonrheumatic aortic (valve) stenosis; Z95.2 Presence of prosthetic heart valve; I44.2 Atrioventricular block, complete; Z95.0 Presence of cardiac pacemaker; I13.0 Hypertensive heart and chronic kidney disease with heart failure and stage 1 through stage 4 chronic kidney disease, or unspecified chronic kidney disease; N18.9 Chronic kidney disease, unspecified; I50.32 Chronic diastolic (congestive) heart failure; I71.2 Thoracic aortic aneurysm, without rupture; K22.2 Esophageal obstruction; E78.5 Hyperlipidemia, unspecified; K21.9 Gastro-esophageal reflux disease without esophagitis; M48.00 Spinal stenosis, site unspecified; N40.0 Benign prostatic hyperplasia without lower urinary tract symptoms; Z79.82 Long term (current) use of aspirin; Z88.0 Allergy status to penicillin; Z88.8 Allergy status to other drugs, medicaments and biological substances
CPT/HCPCS: 71045; 80048; 80048 91; 80076; 81003; 83605; 83690; 84484; 85014; 85018; 85025; 85027; 85049; 85379; 86850; 86900; 86901; 86920; 93005; 93970; 99281; 99285; G0378; J7030; J7050; P9016

== ENCOUNTER 2017-10-16 14:01 | Inpatient (IN) | payer OTHER, MEDICARE ==
[~2017-10-16] VITALS: Ht 167.6 cm; Wt 77.3 kg
[~2017-10-16 14:01] MED LIST changes: +DECADRON4 M1 PO; +LASIX20 MG PO; +REVLIMID10 MG PO; +VELCADE3.5 MG SC
[2017-10-16 14:34] LABS: HEMATOCRIT 21.8 % (38.0-50.0); HEMOGLOBIN 7.7 G/DL (12.5-16.6); IMM.PLATELET FRACTION 2.4 (1-7); MCHC 35.3 G/DL (30.0-36.0); MCV 99.1 FL (86-99); RBC DIS.WIDTH-CV 19.8 % (11.8-14.6); RBC DIS.WIDTH-SD 71.3 % (39-53); WHITE BLOOD COUNT 2.4 K/uL (4.1-10.2)
[2017-10-16 14:35] LABS: PLATELET COUNT 51 K/uL (156-360)
[2017-10-16 14:38] LABS: CHLORIDE 107 mEq/L (99-109); SODIUM 136 mEq/L (136-147)
[2017-10-16 14:39] LABS: GLUCOSE 98 mg/dL (70-99)
[2017-10-16 14:43] LABS: CREATININE 1.6 mg/dL (0.6-1.3); GFR ESTIMATE (CALCULATED) 45 mL/min/ (58.99-99999)
[2017-10-16 14:44] LABS: UREA NITROGEN (BUN) 24 mg/dL (9-23)
[2017-10-16 14:49] LABS: TROP-I INTERPRETATION NEGATIVE; TROPONIN-I 0.01 ng/mL (0.0-0.30)
[2017-10-16] MEDS ORDERED: FLOMAX0.4 MG PO (19:09)
[2017-10-16] MEDS ORDERED: LIPITOR40 MG PO (19:10)
[2017-10-16] MEDS ORDERED: SERTRALINE HCL25 MG PO (19:10)
[2017-10-16] MEDS ORDERED: DARZALEX100 MG/5 M IV (19:11)
[2017-10-16 20:45] VITALS: BP 104/52
[2017-10-17] VITALS (7 sets, daily range): BP systolic 91–105; BP diastolic 50–54
[2017-10-17 04:22] LABS: CHLORIDE 111 mEq/L (99-109); HEMOGLOBIN 7.1 G/DL (12.5-16.6); MCH 35.3 PG (29.0-34.0); MCHC 35.5 G/DL (30.0-36.0); MCV 99.5 FL (86-99); POTASSIUM 4.1 mEq/L (3.7-5.4); RBC DIS.WIDTH-CV 20.3 % (11.8-14.6); RED BLOOD COUNT 2.01 M/uL (4.00-5.50); SODIUM 139 mEq/L (136-147); WHITE BLOOD COUNT 2.1 K/uL (4.1-10.2)
[2017-10-17 04:24] LABS: GLUCOSE 78 mg/dL (70-99)
[2017-10-17 04:28] LABS: CREATININE 1.4 mg/dL (0.6-1.3); GFR ESTIMATE (CALCULATED) 52 mL/min/ (58.99-99999)
[2017-10-17 04:29] LABS: UREA NITROGEN (BUN) 24 mg/dL (9-23)
[2017-10-17 04:36] LABS: TROP-I INTERPRETATION NEGATIVE; TROPONIN-I 0.04 ng/mL (0.0-0.30)
[2017-10-17 04:53] LABS: HDL CHOLESTEROL 36 MG/DL (Desirable>=40); LDL CHOLESTEROL 28 mg/dL (Desirable<100); NON-HDL CHOLESTEROL 45 mg/dL (Desirable<160); TOTAL CHOLESTEROL 81 mg/dL (Desirable<200); TRIGLYCERIDES 85 MG/DL (Normal: <150)
[2017-10-17 06:56] LABS: BASOPHIL (%) 0 % (0-1); EOSINOPHIL (%) 4.3 % (0-5); EOSINOPHIL COUNT 0.1 K/uL (0-0.3); IMM.PLATELET FRACTION 3.2 (1-7); IMMATURE GRANULOCYTE (%) 1.4 % (0.0-0.7); LYMPHOCYTE (%) 8.7 % (15-42); LYMPHOCYTE COUNT 0.2 K/uL (1.0-2.8); MONOCYTE COUNT 0.3 K/uL (0-0.8); NEUTROPHIL (%) 72.6 % (45-76); NEUTROPHIL COUNT 1.5 K/uL (1.8-6.4); PLAT.SUFFICIENCY VERY DECREASED; PLATELET COUNT 49 K/uL (156-360)
[2017-10-17 10:39] LABS: TROP-I INTERPRETATION NEGATIVE; TROPONIN-I 0.03 ng/mL (0.0-0.30)
[2017-10-18] VITALS (10 sets, daily range): BP systolic 91–121; BP diastolic 50–59
[2017-10-18 09:53] LABS: HEMATOCRIT 31.5 % (38.0-50.0); MCH 33.4 PG (29.0-34.0); MCHC 34.9 G/DL (30.0-36.0); MCV 95.7 FL (86-99); RBC DIS.WIDTH-CV 20.9 % (11.8-14.6); RBC DIS.WIDTH-SD 71.8 % (39-53); WHITE BLOOD COUNT 2.7 K/uL (4.1-10.2)
[2017-10-18 09:54] LABS: RED BLOOD COUNT 3.29 M/uL (4.00-5.50)
[2017-10-18 10:19] LABS: CHLORIDE 105 MEQ/L (99-109); CREATININE 1.4 MG/DL (0.6-1.3); GFR ESTIMATE (CALCULATED) 52 mL/min/ (58.99-99999); GLUCOSE 136 mg/dL (70-99); POTASSIUM 4.3 MEQ/L (3.7-5.4); SODIUM 137 MEQ/L (136-147); UREA NITROGEN (BUN) 20 mg/dL (9-23)
[2017-10-18 10:20] LABS: IMM.PLATELET FRACTION 3.4 (1-7); PLAT.SUFFICIENCY DECREASED; PLATELET COUNT 53 K/uL (156-360)
== END 2017-10-18 13:00 | disposition home or self-care (01) | DRG 841 ==
LOC: EME 14:01 → 4SOUTH 19:08 → EDOF 19:08 → ENRESERV 19:33 → 4SOUTH 20:14
PROVIDERS: Internal Medicine; Physician Assistant Medical
PROC: 30233N1 Transfusion of Nonautologous Red Blood Cells into Peripheral Vein, Percutaneous Approach (ICD-10-PCS; principal; 2017-10-18)
DX: C90.00 Multiple myeloma not having achieved remission (principal); D63.0 Anemia in neoplastic disease; D64.81 Anemia due to antineoplastic chemotherapy; T45.1X5A Adverse effect of antineoplastic and immunosuppressive drugs, initial encounter; D61.818 Other pancytopenia; I50.32 Chronic diastolic (congestive) heart failure; I48.0 Paroxysmal atrial fibrillation; I44.2 Atrioventricular block, complete; K22.2 Esophageal obstruction; I27.20 Pulmonary hypertension, unspecified; I25.10 Atherosclerotic heart disease of native coronary artery without angina pectoris; I35.0 Nonrheumatic aortic (valve) stenosis; N18.3 Chronic kidney disease, stage 3 (moderate); N40.1 Benign prostatic hyperplasia with lower urinary tract symptoms; R33.8 Other retention of urine; E78.5 Hyperlipidemia, unspecified; K21.9 Gastro-esophageal reflux disease without esophagitis; M19.90 Unspecified osteoarthritis, unspecified site; I25.2 Old myocardial infarction; Z87.891 Personal history of nicotine dependence; Z95.0 Presence of cardiac pacemaker; Z95.3 Presence of xenogenic heart valve; Z96.651 Presence of right artificial knee joint; Z80.0 Family history of malignant neoplasm of digestive organs
CPT/HCPCS: 36415; 71046; 71275; 80048; 80053; 80061; 83735; 83883 90; 84484; 85007; 85025; 85027; 86850; 86860; 86870; 86880; 86900; 86901; 86920; 93005; 99281; 99285; G0378; J1200; J1644; J1940; J2930; J7030; P9016